=== PATIENT | male | born 1990 ===

== ENCOUNTER 2019-06-06 09:39 | Day surgery (SDC) | payer OTHER ==
[~2019-06-06 09:39] MED LIST: Lactated Ringers 1,000 ML IV SCH; Lidocaine 2% 5 ML SDV ONE; Midazolam 1 MG/ML 2 ML SDV ONE; Propofol 200 MG/20 ML SDV ONE; Sodium Chloride 0.9% 10 ML SDV IV PRN; Sodium Chloride 0.9% 10 ML Syringe FLUSH PRN; Sodium Chloride 0.9% 2.5 ML Syringe FLUSH PRN; fentaNYL 100 MCG/2 ML SDV ONE
--- NOTE | 2019-06-06 10:58 | PCM.PREANE ---
Preanesthetic Assessment - Anesthesia/Transfusion/Family Hx Anesthesia History: No Prior Anesthesia Family History of Anesthesia Reaction: No Transfusion History: No Prior Transfusion(s) - Review of Systems General: No Symptoms Pulmonary: No Symptoms Cardiovascular: No Symptoms Neurological: No Symptoms Other: Reports: None - Physical Assessment NPO Status Date: 06/05/19 Vital Signs: Last Vital Signs Temp 97.9 F 06/06/19 10:33 Pulse 62 06/06/19 10:33 Resp 16 06/06/19 10:33 BP 137/81 06/06/19 10:33 Pulse Ox 97 06/06/19 10:33 Height: 5 ft 10 in Weight: 90.265 kg ASA Class: 1 Mental Status: Alert & Oriented x3 Airway Class: Mallampati = 2 Dentition: Reports: Normal Dentition ROM/Head Extension: Full Lungs: Clear to Auscultation, Normal Respiratory Effort Cardiovascular: Regular Rate, Regular Rhythm - Allergies Allergies/Adverse Reactions: Allergies Allergy/AdvReac Type Severity Reaction Status Date / Time No Known Allergies Allergy Verified 05/31/19 15:59 - Blood Blood Available: No - Anesthesia Plan Pre-Op Medication Ordered: None - Acknowledgements Anesthesia Type Planned: General Anesthesia Pt an Appropriate Candidate for the Planned Anesthesia: Yes Alternatives and Risks of Anesthesia Discussed w Pt/Guardian: Yes Pt/Guardian Understands and Agrees with Anesthesia Plan: Yes Additional Comments: PMH: white coat htn- elevated in office, normal this am PLAN: tiva PreAnesthesia Questionnaire Gastrointestinal History: Reports: GERD Other Gastrointestinal History: not currently taking medication- "it didn't help " Musculoskeletal History: Reports: Fracture Other Musculoskeletal History: hx of fx foot Neurological History: Reports: Other (See Below) Other Neuro History: has motion sickness Psychiatric History: Reports: Anxiety Other Psychiatric History: not currently taking zoloft- is taking a "vegetable supplement for anxiety" - SUBSTANCE USE Smoking Status *Q: Former Smoker Tobacco Use Within Last Twelve Months: No Recreational Drug Use History: No - HOME MEDS Home Medications: Home Meds Hpa Adapt 1 cap PO ASDIRECTED PRN 05/31/19 [History] - CURRENT (IN HOUSE) MEDS Current Meds: Current Medications Lactated Ringer's (Ringers, Lactated) 1,000 mls @ 125 mls/hr IV ASDIRECTED [facility] Last Admin: 10/15/19 10:29 Dose: 125 mls/hr Sodium Chloride (Saline Flush) 10 ml FLUSH ASDIRECTED PRN PRN Reason: Keep Vein Open Sodium Chloride (Saline Flush) 2.5 ml FLUSH ASDIRECTED PRN PRN Reason: Keep Vein Open Sodium Chloride (Saline Flush) 10 ml FLUSH ASDIRECTED PRN PRN Reason: Keep Vein Open Sodium Chloride (Saline Flush) 2.5 ml FLUSH ASDIRECTED PRN PRN Reason: Keep Vein Open Sodium Chloride (Normal Saline) 10 ml IV ASDIRECTED PRN PRN Reason: IV Use Discontinued Medications Fentanyl (Sublimaze) Confirm Administered Dose 100 mcg .ROUTE .STK-MED ONE Stop: 06/06/19 07:36 Lidocaine (Xylocaine-Mpf 2%) Confirm Administered Dose 5 ml .ROUTE .STK-MED ONE Stop: 06/06/19 07:36 Midazolam HCl (Versed 1 Mg/Ml) Confirm Administered Dose 2 mg .ROUTE .STK-MED ONE Stop: 06/06/19 07:36 Propofol (Diprivan 20 Ml) Confirm Administered Dose 400 mg .ROUTE .STK-MED ONE Stop: 06/06/19 07:36
--- NOTE | 2019-06-06 11:54 | PCM.OPNOTE ---
- General Post-Op/Procedure Note Date of Surgery/Procedure: 06/06/19 Operative Procedure(s): Diagnostic egd Findings: mild gastritis Pre Op Diagnosis: chronic epigastric pain Post-Op Diagnosis: gastritis Anesthesia Technique: MAC Primary Surgeon: Sandra Ugarte Condition: Good
--- NOTE | 2019-06-06 12:38 | PCM.POSTAN ---
POST ANESTHESIA ASSESSMENT - MENTAL STATUS Mental Status: Alert, Oriented - VITAL SIGNS Vital Signs: Last Vital Signs Temp 97.7 F 06/06/19 11:46 Pulse 58 L 06/06/19 12:06 Resp 10 L 06/06/19 12:06 BP 129/70 06/06/19 12:06 Pulse Ox 97 06/06/19 12:06 - RESPIRATORY Respiratory Status: Respiratory Rate WNL, Airway Patent, O2 Saturation Stable - CARDIOVASCULAR CV Status: Pulse Rate WNL, Blood Pressure Stable - GASTROINTESTINAL GI Status: No Symptoms - POST OP HYDRATION Hydration Status: Adequate & Stable
--- NOTE | 2019-06-06 12:39 | PCM48HPAN ---
Post Anesthesia Note - EVALUATION WITHIN 48HRS OF ANESTHETIC Vital Signs in Normal Range: Yes Patient Participated in Evaluation: Yes Respiratory Function Stable: Yes Airway Patent: Yes Cardiovascular Function Stable: Yes Hydration Status Stable: Yes Pain Control Satisfactory: Yes Nausea and Vomiting Control Satisfactory: Yes Vital Signs: Last Vital Signs Temp 97.7 F 06/06/19 11:46 Pulse 58 L 06/06/19 12:06 Resp 10 L 06/06/19 12:06 BP 129/70 06/06/19 12:06 Pulse Ox 97 06/06/19 12:06
--- NOTE | 2019-06-08 17:42 | OR ---
SURGEON: SANDRA UGARTE MD DATE OF PROCEDURE: 06/06/2019 PREOPERATIVE DIAGNOSIS: Chronic epigastric pain. POSTOPERATIVE DIAGNOSIS: Chronic epigastric pain. PROCEDURE PERFORMED: Diagnostic esophagogastroduodenoscopy with biopsy. PRIMARY SURGEON: Sandra Ugarte MD. ANESTHESIA: MAC. INSTRUMENT USED: Olympus endoscope. EXTENT OF EXAM: To the second portion of duodenum. PREPARATION: Good. LIMITATIONS: None. INDICATIONS FOR EXAMINATION: The patient is a 28-year-old male who presents with chronic epigastric pain despite PPI use. I explained the need for a diagnostic EGD. I explained the procedure; expected perioperative course; and risks including bleeding, infection, or damage to surrounding structures including perforation. The patient verbalized understanding and wishes to proceed. PROCEDURE IN DETAIL: The patient was brought into the endoscopy suite and placed in a left lateral decubitus position. A time-out was completed verifying the patient's name, age, date of , allergies, and procedure to be performed. A bite block was placed in the patient's mouth and monitored anesthesia care was induced. Continuous oxygen was provided via nasal cannula throughout the procedure. After adequate sedation was achieved, a well-lubricated endoscope was placed in the patient's mouth and advanced under direct visualization to the second portion of duodenum. This appeared normal and a photograph was taken. The scope was then fully withdrawn while examining the color, texture, anatomy, and integrity of the mucosa of the upper GI tract. The duodenum appeared normal, but a biopsy was taken in the first portion of duodenum and sent to pathology for histologic review. The scope was then brought into the stomach and a photograph was taken of the pylorus as well as the GE junction. The gastric mucosa had no evidence of any gross ulceration or inflammation. However, there was some suggestion of mild inflammation in the antrum of the stomach. Biopsies were taken of the antrum, body, and fundus, and sent for histologic review and H. pylori testing. The scope was then brought into the distal esophagus. A photograph was taken of the Z-line which appeared normal. The remainder of the esophageal mucosa was free of pathology. The scope was removed and the procedure terminated. The patient tolerated the procedure well and was transferred to the PACU in stable condition. ENDOSCOPIC DIAGNOSIS: Mild gastritis. RECOMMENDATIONS: We will review the pathology results with the patient in 2 weeks. Likely, we will begin workup for possible biliary etiology. TEGAN / ZOIE /[id number]
== END 2019-06-06 12:35 | disposition home or self-care (01) ==
LOC: MW.SDS 09:39
PROVIDERS: ATTEND Surgery
DX: K29.70 Gastritis, unspecified, without bleeding (principal); K21.9 Gastro-esophageal reflux disease without esophagitis; Z79.899 Other long term (current) drug therapy; Z87.891 Personal history of nicotine dependence
CPT/HCPCS: 43239; J2001; J2250; J2704; J3010; J7120